=== PATIENT | female | born 1980 | race Caucasian/White ===

== ENCOUNTER 2017-03-31 22:46 | Emergency (ER) | payer SELFPAY ==
[~2017-03-31] VITALS: Ht 152.4 cm; Wt 97.0 kg
[2017-03-31 22:47] VITALS: Ht 152.4 cm; Wt 97.0 kg
[2017-03-31] MEDS ORDERED: IBUP-1542 PO (23:54)
[2017-03-31] MEDS ORDERED: CEPH-443 PO (23:54)
[2017-03-31] MEDS ORDERED: BACITUD TOP (23:54)
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
[2017-04-01] MEDS ORDERED: DIPHTH/TET/ACEL PERTUSS (ADULT) 0.5 ML VIAL IM* ONE
[2017-04-01] MEDS ORDERED: IBUPROFEN 800 MG TAB PO ONE
[2017-04-01] MEDS ORDERED: BACITRACIN 0.9 GM OINT TOP ONE
[2017-04-01 00:41] VITALS: PULSE 88; RESP 16
== END 2017-04-01 00:42 | disposition home or self-care (01) ==
LOC: FTE 22:46
DX: T22.212A Burn of second degree of left forearm, initial encounter (principal); X10.2XXA Contact with fats and cooking oils, initial encounter; Y92.9 Unspecified place or not applicable; Z23 Encounter for immunization
CPT/HCPCS: 90471; 90715

== ENCOUNTER 2017-06-03 22:11 | Emergency (ER) | payer MEDICAID ==
[~2017-06-03] VITALS: Ht 165.1 cm; Wt 96.0 kg
[~2017-06-03 22:11] MED LIST: BACITUD TOP; CEPH-443 PO; IBUP-1542 PO
[2017-06-03 22:30] VITALS: Ht 165.1 cm; Wt 96.0 kg
[2017-06-04] MEDS ORDERED: HYDR-906 PO (03:10)
[2017-06-04] MEDS ORDERED: IBUP800T25 PO (03:10)
--- NOTE | 2017-06-04 03:15 | ERD ---
ER Documentation Chief Complaint Chief Complaint Chest pain HPI This is a 37-year-old female complains of left upper chest pain and left upper back pain described as sharp worse with movement deep breath movement of left arm and twisting of the trunk. This began at 8:00 last night. No trauma does not recall any lifting pushing pulling injury. Pain is better at rest and worse with movement ROS All systems reviewed and are negative except as per history of present illness. Medications Home Meds Active Scripts Hydrocodone/Acetaminophen (Marshall 5-325 Tablet) 1 Each Tablet, 1 TAB PO Q6H Y for PAIN, #7 TAB Prov:GURVINDER RUIZSTLENIS A. DO 06/04/17 Ibuprofen* (Motrin*) 800 Mg Tab, 800 MG PO Q6H Y for PAIN AND OR ELEVATED TEMP, #30 TAB Prov:GURVINDER RUIZSTLENIS A. DO 06/04/17 Cephalexin* (Keflex*) 500 Mg Capsule, 500 MG PO QID for 7 Days, CAP Prov:CORNELL EWING PA-C 03/31/17 Ibuprofen* (Motrin*) 600 Mg Tab, 600 MG PO Q6, #30 TAB Prov:CORNELL EWING PA-C 03/31/17 Bacitracin* (Bacitracin Oint (UD)*) 1 Applic Oint, 1 APPLIC TOP ONCE, #14 PKT APPLY TO Prov:CORNELL EWING PA-C 03/31/17 Allergies Allergies: Coded Allergies: No Known Drug Allergies (Verified Allergy, Unknown, 06/03/17) PMhx/Soc History of Surgery: No Anesthesia Reaction: No Hx Neurological Disorder: No Hx Respiratory Disorders: No Hx Cardiac Disorders: No Hx Psychiatric Problems: No Hx Miscellaneous Medical Probl: No Hx Alcohol Use: No Hx Substance Use: No Hx Tobacco Use: No Smoking Status: Never smoker FmHx Family History: No coronary disease Physical Exam Vitals Vital Signs Date Time Temp Pulse Resp B/P Pulse Ox O2 Delivery O2 Flow Rate FiO2 06/04/17 02:20 98.9 89 17 130/69 99 Room Air 06/03/17 22:30 98.9 81 18 123/67 99 Physical Exam Const: Well-developed, well-nourished Head: Atraumatic, normocephalic Eyes: Normal Conjunctiva, PERRLA, EOMI, normal sclera, no nystagmus ENT: Normal External Ears, Nose and Mouth, moist mucus membranes. Neck: Full range of motion. No meningismus, no lymphadenopathy. Resp: Clear to auscultation bilaterally, no wheezing, rhonchi, rales, there is reproducible chest pain to palpation of the left upper chest and left upper back along ribs 2 3 and 4. Pain is severe. There is pain that increases with twisting of the trunk movement of the left arm, Cardio: Regular rate and rhythm, no murmurs, S1 S2 present Abd: Soft, non tender x 4, non distended. Normal bowel sounds, no guarding or rebound, no pulsitile abdominal masses or bruits Skin: No petechiae or rashes, no ecchymosis , no maculopapular rash Back: No midline or flank tenderness Ext: No cyanosis, or edema, FROM x 4, normal inspection, neurovascularly intact x 4 Neur: Awake and alert, STR 5/5 x 4, sensation intact x 4, no focal findings, cerebellum intact Psych: Normal Mood and Affect Results 24 hrs Current Medications Medications (Trade) Dose Ordered Sig/Ila Route PRN Reason Start Time Stop Time Status Last Admin Dose Admin Ibuprofen (Motrin) 800 mg ONCE ONCE PO 06/04/17 03:30 06/04/17 03:31 Acetaminophen/ Hydrocodone Bitart (Marshall (5/325)) 1 tab ONCE ONCE PO 06/04/17 03:30 06/04/17 03:31 Procedures/MDM EKG: Rate/Rhythm: Normal Sinus Rhythm,NL intervals QRS, ST, QT: NORMAL MI, QRS, QT] Impression: NORMAL EKG Chest pain is clearly musculoskeletal in origin. We will discharge with Motrin and Marshall Departure Diagnosis: Primary Impression: Chest wall pain Condition: Stable Patient Instructions: Chest Wall Pain, Costochondritis CARMELA RUIZ DO Jun 04, 2017 03:15
[2017-06-04] MEDS ORDERED: IBUPROFEN 800 MG TAB PO ONE (03:30)
[2017-06-04] MEDS ORDERED: HYDROCODONE/APAP (5/325) TAB PO ONE (03:30)
[2017-06-04 04:03] VITALS: BP 103/60; PULSE 78; RESP 19; TEMP 98.6
== END 2017-06-04 04:04 | disposition home or self-care (01) ==
LOC: E/R 22:11
DX: R07.89 Other chest pain (principal)
CPT/HCPCS: 93005; Z7502; Z7610; 99283

== ENCOUNTER 2017-09-23 16:52 | Emergency (ER) | END 2017-09-23 19:25 | disposition home or self-care (01) ==